=== PATIENT | male | born 1985 | race Caucasian/White ===

== ENCOUNTER 2020-05-08 21:53 | Emergency (ER) | payer OTHER, SELFPAY ==
[2020-05-08 21:56] VITALS: BP 145/85; PULSE 97; RESP 16; TEMP 36.6; O2SAT 97; BMI 22.9
[2020-05-08 22:12] LABS: Basophils # 0.1 K/mm3 (0-0.2); Basophils % 0.7 % (0.1-2.0); Eosinophils # 0.5 K/mm3 (0.0-0.4); Eosinophils % 2.4 % (0.1-12.0); Hematocrit 48.4 % (42.0-52.0); Hemoglobin 16.1 g/dL (14.1-18.0); Lymphocytes # 10.6 K/mm3 (0.7-4.5); Lymphocytes % 56.3 % (10-50); Mean Corpuscular HGB Conc 33.2 g/dL (31.8-35.4); Mean Corpuscular Hemoglobin 33.2 pg (27.0-31.2); Mean Platelet Volume 7.2 fl (7.4-10.4); Monocytes # 1.4 K/mm3 (0.1-1.0); Monocytes % 7.5 % (1.7-9.3); Neutrophils # 6.2 K/mm3 (1.8-7.8); Platelet Count 348 K/mm3 (142-424); Red Blood Count 4.84 M/mm3 (4.60-6.20); Red Cell Distribution Width 14.1 % (11.5-17.5); White Blood Count 18.9 K/mm3 (4.8-10.8)
[2020-05-08 22:14] LABS: MANUAL DIFFERENTIAL MANUAL DIFFERENTIAL (MANUAL DIFF)
[2020-05-08 22:15] LABS: Chloride 104 mmol/L (98-107)
[2020-05-08 22:16] LABS: Potassium 3.3 mmoL/L (3.5-5.1); Sodium 143 mmol/L (136-145)
[2020-05-08 22:18] LABS: Alanine Aminotransferase 83 U/L (12-78); Albumin Level 4.7 g/dl (3.5-5.0); Albumin/Globulin Ratio 1.3 (1.1-1.8); Alkaline Phosphatase 57 U/L (38-126); Anion Gap 16.3 mEq/L (5-15); Aspartate Amino Transferase 66 U/L (17-59); Bilirubin,Total 0.4 mg/dl (0.2-1.3); Blood Urea Nitrogen 14 mg/dl (9-20); Calcium 9.5 mg/dl (8.4-10.2); Carbon Dioxide 26 mmol/L (22.0-30.0); Creatinine Clearance Estimated 115 mL/min (50-200); Estimated Glomerular Filt Rate 95 ml/min (>60); GFR (African American) 115 ML/MIN (>60); Globulin 3.5 g/dL (1.3-3.2); Glucose 161 mg/dl (74-100); Total Protein,Serum 8.2 g/dl (6.3-8.2)
[2020-05-08 22:23] LABS: Eosinophils % 10 % (0-3); Lymphocytes % 65 % (10-50); Monocytes % 3 % (2-9); Neutrophils % 22 % (42-76); Total Cells Counted 100
[2020-05-08 22:24] LABS: Anisocytosis 1+; Platelet Estimate Normal; RBC Morphology Normal
[2020-05-08 22:30] VITALS: BP 154/97; PULSE 72; RESP 18; O2SAT 96
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
[2020-05-08 23:55] VITALS: BP 148/78; PULSE 76; RESP 16; TEMP 526.1; TEMP 979; O2SAT 98
== END 2020-05-08 23:57 ==
PROVIDERS: Emergency Provider Emergency Medicine; PCP Emergency Medicine
DX: F10.129 Alcohol abuse with intoxication, unspecified (principal); T50.901A Poisoning by unspecified drugs, medicaments and biological substances, accidental (unintentional), initial encounter; F33.9 Major depressive disorder, recurrent, unspecified; K21.9 Gastro-esophageal reflux disease without esophagitis; F90.9 Attention-deficit hyperactivity disorder, unspecified type; F17.210 Nicotine dependence, cigarettes, uncomplicated; Z79.899 Other long term (current) drug therapy
CPT/HCPCS: 36415; 80053; 85007; 85025; 99283

== ENCOUNTER 2020-12-05 18:17 | Emergency (ER) | payer OTHER, SELFPAY ==
[2020-12-05 18:18] VITALS: BP 137/93; PULSE 55; RESP 22; TEMP 37.1; O2SAT 98; BMI 22.3
--- NOTE | 2020-12-05 18:20 | ECG_ITS ---
APPROVED REPORT Exam: Resting ECG HR:52 bpm ECG Measurements Heart Rate 52 AXES MN 132 P 50 QRSd 84 QRS 78 QT 466 T 63 QTc 433 Conclusion Sinus bradycardia Septal infarct, age undetermined Abnormal ECG Electronically signed by : Barber Gray, 12/06/2020 15:08:02
[2020-12-05 18:26] VITALS: BMI 25.0
--- NOTE | 2020-12-05 18:27 | XR_ITS ---
PROCEDURE: XR CHEST PORTABLE CLINICAL HISTORY: cough COMPARISON: CR CXR CHEST(2 VIEWS-NOT PORTABLE) from 11/03/2013 FINDINGS: The cardiomediastinal silhouette and pulmonary vascularity are within normal limits. The lungs are clear without infiltrates, suspicious nodules, or pleural effusions. No acute bony abnormalities. IMPRESSION: No acute findings. Dictated by: Anjana Perla 12/06/2020 10:25 Anjana Perla in [facility] 12/06/2020 10:25
[2020-12-05 18:38] LABS: Basophils % 0.3 % (0.1-2.0); Eosinophils # 0.1 K/mm3 (0.0-0.4); Eosinophils % 0.7 % (0.1-12.0); Hematocrit 44.1 % (42.0-52.0); Hemoglobin 14.8 g/dL (14.1-18.0); Lymphocytes % 21.2 % (10-50); Mean Corpuscular HGB Conc 33.6 g/dL (31.8-35.4); Mean Corpuscular Hemoglobin 31.1 pg (27.0-31.2); Mean Corpuscular Volume 92.5 fl (80-94); Monocytes # 0.6 K/mm3 (0.1-1.0); Monocytes % 6.6 % (1.7-9.3); Neutrophils # 6.8 K/mm3 (1.8-7.8); Neutrophils % 71.2 % (37.0-80.0); Platelet Count 292 K/mm3 (142-424); Red Blood Count 4.77 M/mm3 (4.60-6.20); Red Cell Distribution Width 13.5 % (11.5-17.5); White Blood Count 9.5 K/mm3 (4.8-10.8)
[2020-12-05 18:46] LABS: Chloride 105 mmol/L (98-107); Potassium 3.4 mmoL/L (3.5-5.1); Sodium 139 mmol/L (136-145)
[2020-12-05 18:48] LABS: Blood Urea Nitrogen 12 mg/dl (9-20); Creatinine Clearance Estimated 130 mL/min (50-200); Estimated Glomerular Filt Rate 109 ml/min (>60); GFR (African American) 132 ML/MIN (>60)
[2020-12-05 18:49] LABS: Alanine Aminotransferase 126 U/L (12-78); Albumin/Globulin Ratio 1.6 (1.1-1.8); Alkaline Phosphatase 90 U/L (38-126); Anion Gap 12.4 mEq/L (5-15); Aspartate Amino Transferase 77 U/L (17-59); Bilirubin,Total 0.7 mg/dl (0.2-1.3); Carbon Dioxide 25 mmol/L (22.0-30.0); Globulin 3.2 g/dL (1.3-3.2); Glucose 120 mg/dl (74-100); Lipase 120 U/L (23-300); Total Protein,Serum 8.2 g/dl (6.3-8.2)
--- NOTE | 2020-12-05 18:51 | HMH.EDGENADL ---
ED Disposition Clinical Impression: Dyspepsia Disposition: Still a Patient Condition on Discharge: Fair Referrals: Jarett Frankel MD [Primary Care Provider] - - Critical Care Critical Care Time: No Attestation: On 12/05/20, the high probability of a clinically significant, sudden or life threatening deterioration of the following system(s) required my full and direct attention, intervention and personal management. The time I documented below is in addition to time spent performing reported procedures but includes the following listed in this critical care notation. Medical Decision Making - Medical Records Medical records reviewed: Yes: I reviewed the patient's medical records. - Armin Inquiry Pt receiving controlled substance: No Vital Signs: 12/05/20 18:18 Temperature 98.7 F Temperature Source Oral Pulse Rate [Radial] 55 L Respiratory Rate 22 Blood Pressure [Right Arm] 137/93 H Blood Pressure Mean [Right Arm] 107 Blood Pressure Position [Right Arm] Sitting 02 Sat by Pulse Oximetry 98 Oxygen Delivery Method Room Air - Lab Data Lab Results 12/05/20 18:27: WBC 9.5, RBC 4.77, Hgb 14.8, Hct 44.1, MCV 92.5, MCH 31.1, MCHC 33.6, RDW 13.5, Plt Count 292, MPV 7.0 L, Neut % (Auto) 71.2, Lymph % (Auto) 21.2, [place] % (Auto) 6.6, Eos % (Auto) 0.7, Baso % (Auto) 0.3, Neut # (Auto) 6.8, Lymph # (Auto) 2.0, [place] # (Auto) 0.6, Eos # (Auto) 0.1, Baso # (Auto) 0.0 12/05/20 18:27: Sodium 139, Potassium 3.4 L, Chloride 105, Carbon Dioxide 25, Anion Gap 12.4, BUN 12, Creatinine 0.80, Estimated Creat Clear 130, Estimated GFR 109, Est GFR ( Amer) 132, Glucose 120 H, Calcium 10.0, Total Bilirubin 0.7, AST 77 H, ALT 126 H, Alkaline Phosphatase 90, Troponin I < 0.01, Total Protein 8.2, Albumin 5.0, Globulin 3.2, Albumin/Globulin Ratio 1.6, Lipase 120 Result diagrams: 12/05/20 18:27 12/05/20 18:27 Orders (Tests/Meds): ED MEDICATIONS Discontinued Medications Generic Name Dose Route Start Last Admin Trade Name Freq PRN Reason Stop Dose Admin Belladonna Alkaloids 60 ml 12/05/20 18:28 12/05/20 18:29 Gi Cocktail 60ml Udc PO 12/05/20 18:29 60 ml ONCE ONE Administration Famotidine 20 mg 12/05/20 18:26 12/05/20 18:32 Famotidine 20mg/2ml Vial IV 12/05/20 18:27 20 mg ONCE ONE Administration Haloperidol Lactate 3 mg 12/05/20 19:31 Haloperidol Lactate 5 Mg/Ml Vial IV 12/05/20 19:32 ONCE ONE Sodium Chloride 1,000 mls @ 999 mls/hr 12/05/20 18:30 12/05/20 18:32 Sod Chlor 0.9% 1000ml Bag IV 12/05/20 19:30 999 mls/hr .Q1H1M ALECIA Administration Ondansetron HCl 4 mg 12/05/20 19:11 12/05/20 19:14 Ondansetron 4mg/2ml Vial IV 12/05/20 19:12 4 mg ONCE ONE Administration Promethazine HCl 25 mg 12/05/20 18:26 12/05/20 18:32 Promethazine Hcl 25mg/Ml 1ml Vial IV 12/05/20 18:27 25 mg ONCE ONE Administration Sodium Chloride 8 ml 12/05/20 18:26 12/05/20 18:32 Sodium Chloride 0.9% 10ml Vial IV 01/04/21 18:25 8 ml NEEDED PRN Administration dilute pepcid Sodium Chloride 25 ml 12/05/20 18:26 12/05/20 18:32 Sodium Chloride 0.9% 25ml Bag IV 12/05/20 18:27 25 ml ONCE ONE Administration ORDERS Category Date Time Status CT abdomen pelvis wo con Stat Cat Scan 12/05/20 19:32 Ordered XR chest portable Stat Exams 12/05/20 18:27 Taken Troponin I Q3H Lab 12/05/20 21:30 Ordered Troponin I Q3H Lab 12/06/20 00:30 Ordered - ECG Data Tracing #1 Bradycardic rate of 52 bpm, normal AR interval, normal QTC, sinus bradycardia with nonspecific changes ECG initial impression date: 12/05/20 ECG initial impression time: 18:22 - Reevaluation(s) Time: 19:34 Reevaluation #1: On reevaluation, patient continues to have nausea and vomiting as well as epigastric pain. CT will be obtained. Patient provided additional antiemetics. Signed out to oncoming physician pending work-up and evaluation. Medical Decision Narrative: 35-year-
[2020-12-05 19:03] LABS: Troponin I < 0.01 ng/ml (0.00-0.034)
--- NOTE | 2020-12-05 19:32 | CT_ITS ---
PROCEDURE: CT ABDOMEN PELVIS WO CON CLINICAL INDICATION: abd pain COMPARISON: No exams were available for comparison TECHNIQUE: Axial images obtained with sagittal and coronal reformats. All CT scans at the facility use one or more dose reduction, viz: automated exposure control, ma/kV adjustment per patient size (including targeted exams where dose is matched to indication, i.e. head), or iterative reconstruction technique. FINDINGS: LOWER THORAX: No acute finding ABDOMEN & PELVIS: The liver, spleen, adrenal glands, and pancreas are unremarkable within the limitations of unenhanced study. The gallbladder is unremarkable. No intra or extrahepatic biliary dilation. Bilateral nonobstructive calculi are noted measuring up to 2 millimeters. No evidence of hydronephrosis or hydroureter. The large and small bowel loops demonstrate no focal wall thickening, obstruction or adjacent inflammatory changes. The appendix is normal. No significant retroperitoneal or mesenteric lymphadenopathy. No free fluid or free intraperitoneal air. The visualized abdominal aorta and its branches are unremarkable. Multilevel minor degenerative changes of the lumbar spine noted. IMPRESSION: Bilateral minor nonobstructive punctate renal calculi measuring up to 2 millimeters. No evidence of hydronephrosis. No other acute intra-abdominal abnormality. Dictated by: Anjana Perla 12/06/2020 10:17 Anjana Perla in [facility] 12/06/2020 10:17
[2020-12-05 19:52] VITALS: BP 000/00; PULSE 0; RESP 0; TEMP -17.7; TEMP 0; O2SAT 0
[2020-12-05 19:57] LABS: Amylase 119 U/L (30-110); Lipase 120 U/L (23-300)
--- NOTE | 2020-12-05 19:57 | PC.NURSE ---
Pt attempted to walk out, I had to delon pt and convince him to return to ER so I could DC his IV. Pt states he wants to leave and refuses to allow me to get VS and refuses to sign AMA. It was explained to the pt we would like for him to wait until his tests come back, but he refused.
[2020-12-05 20:10] LABS: Erythrocyte Sedimentation Rate 22 mm/hr (0-15)
[2020-12-05 20:15] LABS: Procalcitonin 0.064 ng/mL (0.0-2.0)
== END 2020-12-05 20:02 | disposition still patient (30) ==
PROVIDERS: Emergency Provider Emergency Medicine; PCP Emergency Medicine
DX: R10.13 Epigastric pain (principal); K21.9 Gastro-esophageal reflux disease without esophagitis; F17.210 Nicotine dependence, cigarettes, uncomplicated; F32.9 Major depressive disorder, single episode, unspecified; F90.9 Attention-deficit hyperactivity disorder, unspecified type
CPT/HCPCS: 71045; 74176; 80053; 82150; 83690; 84145; 84484; 85025; 85651; 93005; 96365; 96375; 99282; J2405

== ENCOUNTER 2021-01-25 02:13 | Emergency (ER) | payer OTHER, SELFPAY ==
[2021-01-25] VITALS (7 sets, daily range): BP systolic 116–152; BP diastolic 67–99; PULSE 69–95; RESP 12–24; TEMP 36.2–36.6; O2SAT 95–100; BMI 23.3
--- NOTE | 2021-01-25 01:57 | ECG_ITS ---
APPROVED REPORT Exam: Resting ECG HR:96 bpm ECG Measurements Heart Rate 96 AXES OH 138 P 67 QRSd 76 QRS 88 QT 330 T 66 QTc 416 Conclusion Normal sinus rhythm Nonspecific ST abnormality Abnormal ECG Electronically signed by : Barber Gray, 01/26/2021 07:10:13
--- NOTE | 2021-01-25 02:07 | XR_ITS ---
PROCEDURE INFORMATION: Exam: XR Chest Exam date and time: 01/25/2021 2:07 AM Age: 35 years old Clinical indication: Patient HX: Overdose, smoker TECHNIQUE: Imaging protocol: XR of the chest. Views: 1 view. COMPARISON: CR XR CHEST PORTABLE 12/05/2020 6:32 PM FINDINGS: Lungs: Unremarkable. No consolidation. Pleural spaces: Unremarkable. No pleural effusion. No pneumothorax. Heart/Mediastinum: Unremarkable. No cardiomegaly. Bones/joints: Unremarkable. IMPRESSION: No acute findings.
--- NOTE | 2021-01-25 02:07 | HMH.EDOD ---
ED Disposition Clinical Impression: Heroin overdose Qualifiers: Encounter type: initial encounter Injury intent: accidental or unintentional Qualified Code(s): T40.1X1A - Poisoning by heroin, accidental (unintentional), initial encounter Disposition: Home, Self-Care Condition on Discharge: Good Additional Instructions: Return to the ED for any new or worsening symptoms. Prescriptions: Naloxone HCl [Narcan] 4 mg NS ONCE PRN #1 spray PRN Reason: overdose Prescription Printed Referrals: Jarett Frankel MD [Primary Care Provider] - Time of Disposition: 04:45 - Critical Care Critical Care Time: No Attestation: On , the high probability of a clinically significant, sudden or life threatening deterioration of the following system(s) required my full and direct attention, intervention and personal management. The time I documented below is in addition to time spent performing reported procedures but includes the following listed in this critical care notation. Medical Decision Making - Medical Records Medical records reviewed: Yes: I reviewed the patient's medical records. - Armin Inquiry Pt receiving controlled substance: No Vital Signs: 01/25/21 02:05 01/25/21 02:30 01/25/21 03:00 Temperature 97.1 F L Temperature Source Oral Pulse Rate 71 85 Pulse Rate [Right Brachial] 95 H Respiratory Rate 24 Blood Pressure 133/78 145/85 H Blood Pressure [Right Arm] 152/99 H Blood Pressure Mean Blood Pressure Mean [Right Arm] 116 Blood Pressure Source [Right Arm] Automatic Cuff Blood Pressure Position [Right Arm] Sitting 02 Sat by Pulse Oximetry 100 96 97 Oxygen Delivery Method Room Air 01/25/21 03:30 Temperature Temperature Source Pulse Rate 69 Pulse Rate [Right Brachial] Respiratory Rate 12 Blood Pressure 116/67 Blood Pressure [Right Arm] Blood Pressure Mean 83 Blood Pressure Mean [Right Arm] Blood Pressure Source [Right Arm] Blood Pressure Position [Right Arm] 02 Sat by Pulse Oximetry 95 Oxygen Delivery Method - Lab Data Lab Results 01/25/21 02:12: WBC 16.8 H, RBC 4.47 L, Hgb 14.0 L, Hct 41.7 L, MCV 93.4, MCH 31.4 H, MCHC 33.7, RDW 13.6, Plt Count 311, MPV 7.0 L, Neut % (Auto) 67.1, Lymph % (Auto) 24.9, [place] % (Auto) 5.6, Eos % (Auto) 2.0, Baso % (Auto) 0.5, Neut # (Auto) 11.3 H, Lymph # (Auto) 4.2, [place] # (Auto) 0.9, Eos # (Auto) 0.3, Baso # (Auto) 0.1, Total Counted 100, Neutrophils % (Manual) 51, Lymphocytes % (Manual) 36, Monocytes % (Manual) 11 H, Eosinophils % (Manual) 2, Platelet Estimate Normal, RBC Morphology Normal 01/25/21 02:12: Sodium 138, Potassium 4.1, Chloride 102, Carbon Dioxide 27, Anion Gap 13.1, BUN 21 H, Creatinine 1.00, Estimated Creat Clear 94, Estimated GFR 84, Est GFR ( Amer) 102, Glucose 162 H, Calcium 8.8, Total Bilirubin 0.4, AST 57, ALT 95 H, Alkaline Phosphatase 85, Total Protein 7.4, Albumin 4.6, Globulin 2.8, Albumin/Globulin Ratio 1.6 Result diagrams: 01/25/21 02:12 01/25/21 02:12 Orders (Tests/Meds): ED MEDICATIONS Generic Name Dose Route Start Last Admin Trade Name Freq PRN Reason Stop Dose Admin Sodium Chloride 1,000 mls @ 999 mls/hr 01/25/21 02:15 01/25/21 02:21 Sod Chlor 0.9% 1000ml Bag IV 01/25/21 03:15 999 mls/hr .Q1H1M ALECIA Administration Discontinued Medications Generic Name Dose Route Start Last Admin Trade Name Freq PRN Reason Stop Dose Admin Ondansetron HCl 4 mg 01/25/21 02:07 01/25/21 02:21 Ondansetron 4mg/2ml Vial IV 01/25/21 02:08 4 mg ONCE ONE Administration - Radiology Data #1 Image(s): Chest Image Reviewed: Yes I reviewed the patient's radiology image Preliminary Findings: Normal/NAD No significant abnormalities. Medical Decision Narrative: Patient presented after an opiate overdose reporting that he snorted heroin. 2 mg of Narcan he is now awake alert and oriented somewhat agitated but compliant. Basic laboratory data was obtained as well as a chest x-ray.
[2021-01-25 02:18] LABS: Basophils # 0.1 K/mm3 (0-0.2); Basophils % 0.5 % (0.1-2.0); Eosinophils # 0.3 K/mm3 (0.0-0.4); Hematocrit 41.7 % (42.0-52.0); Lymphocytes # 4.2 K/mm3 (0.7-4.5); Lymphocytes % 24.9 % (10-50); Mean Corpuscular HGB Conc 33.7 g/dL (31.8-35.4); Mean Corpuscular Hemoglobin 31.4 pg (27.0-31.2); Mean Corpuscular Volume 93.4 fl (80-94); Monocytes # 0.9 K/mm3 (0.1-1.0); Monocytes % 5.6 % (1.7-9.3); Neutrophils # 11.3 K/mm3 (1.8-7.8); Neutrophils % 67.1 % (37.0-80.0); Platelet Count 311 K/mm3 (142-424); Red Blood Count 4.47 M/mm3 (4.60-6.20); Red Cell Distribution Width 13.6 % (11.5-17.5); White Blood Count 16.8 K/mm3 (4.8-10.8)
[2021-01-25 02:22] LABS: MANUAL DIFFERENTIAL MANUAL DIFFERENTIAL (MANUAL DIFF)
[2021-01-25 02:23] LABS: Chloride 102 mmol/L (98-107); Sodium 138 mmol/L (136-145)
[2021-01-25 02:24] LABS: Potassium 4.1 mmoL/L (3.5-5.1)
[2021-01-25 02:26] LABS: Alanine Aminotransferase 95 U/L (12-78); Albumin Level 4.6 g/dl (3.5-5.0); Albumin/Globulin Ratio 1.6 (1.1-1.8); Alkaline Phosphatase 85 U/L (38-126); Anion Gap 13.1 mEq/L (5-15); Aspartate Amino Transferase 57 U/L (17-59); Bilirubin,Total 0.4 mg/dl (0.2-1.3); Blood Urea Nitrogen 21 mg/dl (9-20); Carbon Dioxide 27 mmol/L (22.0-30.0); Creatinine Clearance Estimated 94 mL/min (50-200); Estimated Glomerular Filt Rate 84 ml/min (>60); GFR (African American) 102 ML/MIN (>60); Globulin 2.8 g/dL (1.3-3.2); Total Protein,Serum 7.4 g/dl (6.3-8.2)
[2021-01-25 02:27] LABS: Calcium 8.8 mg/dl (8.4-10.2); Glucose 162 mg/dl (74-100)
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
--- NOTE | 2021-01-25 02:56 | PC.NURSE ---
pd arrived to ed. escorted out of unit. in talking with patient at this time.
[2021-01-25 02:57] LABS: Eosinophils % 2 % (0-3); Lymphocytes % 36 % (10-50); Monocytes % 11 % (2-9); Neutrophils % 51 % (42-76); Platelet Estimate Normal; RBC Morphology Normal; Total Cells Counted 100
== END 2021-01-25 04:57 | disposition home or self-care (01) ==
PROVIDERS: Emergency Provider Student in an Organized Health Care Education/Training Program; PCP Emergency Medicine
DX: T40.1X1A Poisoning by heroin, accidental (unintentional), initial encounter (principal); F33.1 Major depressive disorder, recurrent, moderate; K21.9 Gastro-esophageal reflux disease without esophagitis; F90.9 Attention-deficit hyperactivity disorder, unspecified type; F17.210 Nicotine dependence, cigarettes, uncomplicated
CPT/HCPCS: 71045; 80053; 85007; 85025; 93005; 96365; 96375; 99282; J2405

== ENCOUNTER 2021-04-01 19:17 | Emergency (ER) | payer OTHER, SELFPAY ==
[2021-04-01 19:17] VITALS: BP 132/92; PULSE 64; RESP 18; TEMP 36.8; O2SAT 99; BMI 22.2
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
--- NOTE | 2021-04-01 20:30 | PC.NURSE ---
Dr. Kat s/w Dr. Curran at [facility]
--- NOTE | 2021-04-01 20:35 | PC.NURSE ---
DORIS Barrow on phone with Dr. Levy re: transfer to ER, patient will travel per POV
[2021-04-01 20:37] VITALS: BP 136/88; PULSE 64; RESP 18; TEMP 36.8; O2SAT 99
[2021-04-01 20:40] VITALS: BP 143/92; PULSE 62; RESP 18; TEMP 37.1; O2SAT 97
[2021-04-01 21:03] VITALS: BP 134/75; PULSE 64; RESP 18; TEMP 37.1; O2SAT 97
== END 2021-04-01 21:04 | disposition short-term general hospital (02) ==
PROVIDERS: Emergency Provider Emergency Medicine; PCP Emergency Medicine
DX: S61.412A Laceration without foreign body of left hand, initial encounter (principal); W26.0XXA Contact with knife, initial encounter; Y92.019 Unspecified place in single-family (private) house as the place of occurrence of the external cause; K21.9 Gastro-esophageal reflux disease without esophagitis; Z23 Encounter for immunization; F33.1 Major depressive disorder, recurrent, moderate; F17.210 Nicotine dependence, cigarettes, uncomplicated
CPT/HCPCS: 73130; 90714; 99283

== ENCOUNTER 2022-10-27 09:39 | Emergency (ER) | payer OTHER, SELFPAY ==
--- NOTE | 2022-10-27 09:36 | ECG_ITS ---
APPROVED REPORT Exam: Resting ECG HR:96 bpm ECG Measurements Heart Rate 96 AXES OH 144 P 64 QRSd 85 QRS 68 QT 328 T 64 QTc 381 Conclusion SINUS RHYTHM SEPTAL MYOCARDIAL INFARCTION , OF INDETERMINATE AGE [40+ ms Q WAVE IN V1/V2] ABNORMAL ECG UNCONFIRMED REPORT Electronically signed by : Barber Gray MD 10/27/2022 20:02:32
[2022-10-27 09:39] VITALS: BP 155/117; PULSE 99; RESP 17; TEMP 36.7; O2SAT 98; BMI 22.9
[2022-10-27 09:40] VITALS: BMI 22.9
--- NOTE | 2022-10-27 09:41 | XR_ITS ---
FINAL REPORT CLINICAL HISTORY: CHEST PAIN+ smoker COMPARISON: 01/25/2021 FINDINGS: Two views of the chest were obtained. The heart size and pulmonary vascularity are within normal limits. The mediastinum is normal. No acute pulmonary abnormality is identified. There is no pneumothorax. The bony thorax is intact. IMPRESSION: No active cardiopulmonary disease. Reviewed, Interpreted and Dictated by Santos Sheehan III, MD Transcribed by Beba Clark Authenticated and [facility]
--- NOTE | 2022-10-27 09:57 | PC.NURSE ---
PT TO XR
--- NOTE | 2022-10-27 09:57 | PC.NURSE ---
DR VASQUEZ AT BEDSIDE
[2022-10-27 09:59] LABS: Basophils # 0.2 K/mm3 (0-0.2); Basophils % 2.3 % (0.1-2.0); Eosinophils # 0.2 K/mm3 (0.0-0.4); Eosinophils % 2.3 % (0.1-12.0); Hematocrit 55.8 % (42.0-52.0); Lymphocytes # 3.3 K/mm3 (0.7-4.5); Lymphocytes % 45.9 % (10-50); Mean Corpuscular HGB Conc 33.6 g/dL (31.8-35.4); Mean Corpuscular Hemoglobin 33.6 pg (27.0-31.2); Mean Platelet Volume 7.4 fl (7.4-10.4); Monocytes # 0.6 K/mm3 (0.1-1.0); Monocytes % 8.4 % (1.7-9.3); Neutrophils % 41.1 % (37.0-80.0); Platelet Count 261 K/mm3 (142-424); Red Blood Count 5.58 M/mm3 (4.60-6.20); Red Cell Distribution Width 14.7 % (11.5-17.5); White Blood Count 7.3 K/mm3 (4.8-10.8)
[2022-10-27 10:00] VITALS: BP 146/120; PULSE 103; RESP 16; O2SAT 98
[2022-10-27 10:00] LABS: Chloride 106 mmol/L (98-107); Sodium 144 mmol/L (136-145)
[2022-10-27 10:01] LABS: Potassium 4.5 mmoL/L (3.5-5.1)
[2022-10-27 10:03] LABS: Blood Urea Nitrogen 10 mg/dl (9-20); Creatinine Clearance Estimated 102 mL/min (50-200); Estimated Glomerular Filt Rate 83 ml/min (>60); GFR (African American) 101 ML/MIN (>60)
[2022-10-27 10:04] LABS: Anion Gap 12.5 mEq/L (5-15); Calcium 8.6 mg/dl (8.4-10.2); Carbon Dioxide 30 mmol/L (22.0-30.0); Glucose 127 mg/dl (74-100)
[2022-10-27 10:06] LABS: Hemoglobin 18.8 g/dL (14.1-18.0)
--- NOTE | 2022-10-27 10:10 | PC.NURSE ---
PT RETURNED FROM XR
[2022-10-27 10:18] LABS: Troponin I < 0.01 ng/ml (0.00-0.034)
--- NOTE | 2022-10-27 10:26 | HMH.EDGENADL ---
Discharge Plan Disposition Patient Disposition: Home, Self-Care Condition: Good Chief Complaint: Chest Pain Prescriptions Prescriptions: No Action naloxone 4 MG spray,non-aerosol 4 mg NS ONCE PRN (Reason: overdose) Qty: 1 0RF Referrals Follow up/Referrals: Provider,Referral, MD [Primary Care Provider] - See instructions Activity Restrictions/Add. Instructions Additional Instructions/Restrictions: Follow-up with your primary care provider regarding this visit to the emergency department and further referral to cardiology as needed for further stress testing if needed. If you have any other concerning signs or symptoms, return to your primary care provider or the emergency department for further evaluation. Clinical Impressions Clinical Impression: Arm numbness left Discharge ED Provider: Ayan Knapp General Adult HPI General Chief complaint: Chest Pain Stated complaint: CHEST PAIN Time Seen by Provider: 10/27/22 09:45 Mode of Arrival: Ambulatory Limitations: No Limitations Description of Symptoms (Recalled from ER Triage Doc. by RN): PT REPORTS INTERMITTENT CHEST PAIN FOR 2 MONTHS OCCURS AT REST, REPORTS FEELS LIKE PRESSURE WITH WITH THE BEATING OF HIS HEART. REPORTS LEFT SIDED NUMBNESS AND OCCASIONAL RIGHT SIDED NUMBESSS THAT LASTS FOR 12-15 HOURS THEN RESOLVED. PT DENIES CHEST PAIN OR NUMBESS AT THIS TIME. History of Present Illness HPI narrative: This is a 37-year-old male with no significant medical history presenting with left upper extremity pain. Patient states that intermittently over the last 2 months, he has had left upper extremity numbness and tingling, intermittently, left lower extremity is numb and tingling. He has never had weakness in the extremity whether upper or lower. Last episode was 12 to 15 hours prior to arrival and only left upper extremity. Patient states that he intermittently has chest pain, but not necessarily associated with the upper extremity symptoms. Denies bowel or bladder dysfunction, loss of consciousness, seizure-like activity, trauma, shortness of breath, recent illness, or any other concerns at this time. Related Data Previous Rx's Medication Instructions Recorded naloxone 4 mg/actuation nasal spray 4 mg NS ONCE PRN overdose #1 spray 01/25/21 Allergies Allergy/AdvReac Type Severity Reaction Status Date / Time diphenhydramine Allergy Unknown Verified 12/05/20 18:28 [From BENADRYL] [facility] Disclaimer: The information contained in this section may have been updated after the patient was seen, as this information can be updated by other users. Social History Smoking Status: Current every day smoker tobacco type: cigarettes packs per day: 1 alcohol intake: never substance use type: opiates current occupational status: employed Travel in the last 8 weeks: None ROS Obtained: Yes All systems reviewed & no additional complaints except as documented Physical Exam General General appearance: alert and in no apparent distress Head Head exam: atraumatic, normocephalic and normal inspection Eye Eye exam: Present normal appearance, PERRL and EOMI ENT ENT exam: Present normal exam, normal oropharynx, mucous membranes moist, TM's normal bilaterally and normal external ear exam Neck Neck exam: Present normal inspection, full ROM and trachea midline; Absent meningismus or lymphadenopathy Chest Chest inspection: Present normal inspection and symmetric chest wall rise; Absent tenderness Respiratory Respiratory exam: Present normal lung sounds bilaterally; Absent respiratory distress Cardiovascular Cardiovascular exam: Present regular rate and normal rhythm; Absent JVD Abdominal Exam Abdominal exam: Present soft and normal bowel sounds; Absent distention, tenderness or guarding Extremities Exam Extremities exam: Present normal inspection, full ROM and normal capillary refill; Absent calf tenderness Back Exam Back exam: Present normal inspection; Ab
[2022-10-27 10:30] VITALS: BP 132/99; PULSE 71; O2SAT 99
[2022-10-27 11:00] VITALS: BP 128/88; PULSE 70; O2SAT 99
[2022-10-27 11:18] VITALS: BP 135/96; PULSE 74; RESP 16; O2SAT 99
[2022-10-27 11:23] VITALS: BP 135/96; PULSE 84; RESP 18; TEMP 36.8; O2SAT 96
== END 2022-10-27 11:25 | disposition home or self-care (01) ==
PROVIDERS: Emergency Provider Emergency Medicine
DX: R20.2 Paresthesia of skin (principal); R07.89 Other chest pain; F17.210 Nicotine dependence, cigarettes, uncomplicated
CPT/HCPCS: 71046; 80048; 84484; 85025; 93005; 99285

== ENCOUNTER 2023-05-12 09:53 | Emergency (ER) | payer MEDICAID, SELFPAY ==
[2023-05-12] VITALS (18 sets, daily range): BP systolic 130–176; BP diastolic 71–103; PULSE 53–85; RESP 12–20; TEMP 36.6–36.9; O2SAT 97–100; BMI 23.0
--- NOTE | 2023-05-12 10:00 | XR_ITS ---
FINAL REPORT CLINICAL HISTORY: nail gun injury to L hand COMPARISON: 04/01/2021 FINDINGS: LEFT HAND: 3 views of the left hand were obtained. There is no acute fracture or dislocation. There is a large metallic foreign body compatible with the patient's history of a nail gun injury in the anterolateral wrist and palm. The patient is post ORIF of a scaphoid fracture, with worsening fragmentation of the proximal pole since the prior hand film of 04/01/2021. There has been resorption in the proximal pole as well since that prior exam. IMPRESSION: Large nail in the anterolateral wrist and palm of the left hand. Post ORIF of his scaphoid fracture, with worsening fragmentation and increased resorption in the proximal pole since the prior exam. Reviewed, Interpreted and Dictated by Santos Sheehan III, MD Transcribed by Melissa Ramirez Authenticated and [facility]
--- NOTE | 2023-05-12 10:02 | HMH.EDGENADL ---
Discharge Plan Disposition Patient Disposition: Home, Self-Care Condition: Good Prescriptions Prescriptions: New cephalexin 500 mg capsule 500 mg PO TID 7 Days Qty: 21 0RF No Action naloxone 4 MG spray,non-aerosol 4 mg NS ONCE PRN (Reason: overdose) Qty: 1 0RF Referrals Follow up/Referrals: Drew Arcos DO [Staff Physician] - See instructions Jarett Frankel MD [Primary Care Provider] - See instructions Activity Restrictions/Add. Instructions Additional Instructions/Restrictions: You were evaluated in the emergency department today. 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 Take Tylenol and ibuprofen at home as needed for pain. Monitor for any signs of developing infection. Return to the emergency department for new or worsening symptoms, such as new numbness, tingling, significant increase in swelling, redness, warmth, or pus draining from the wound. Follow-up outpatient in orthopedic clinic with Dr. Arcos for wound check. You will need to call his office to schedule an appointment for next week. Clinical Impressions Clinical Impression: Injury of left hand by nail gun Qualifiers: Encounter type: initial encounter Qualified Code(s): S69.92XA - Unspecified injury of left wrist, hand and finger(s), initial encounter Acute foreign body of left hand Qualifiers: Encounter type: initial encounter Qualified Code(s): S60.552A - Superficial foreign body of left hand, initial encounter Fracture of scaphoid bone of left wrist Qualifiers: Encounter type: subsequent encounter Scaphoid bone location: unspecified portion of scaphoid Fracture type: closed Fracture alignment: nondisplaced Fracture healing: with malunion Qualified Code(s): S62.002P - Unspecified fracture of navicular [scaphoid] bone of left wrist, subsequent encounter for fracture with malunion Instructions Patient Instructions: DI for Removal of Foreign Body From Skin, DI for Moderate Sedation, DI for Hand Injury Discharge ED Provider: Rafaela Ramírez General Adult HPI General Chief complaint: Skin/Abscess/Foreign Body Stated complaint: AO9/6@home, nail lodged in Lt hand Time Seen by Provider: 05/12/23 09:56 History of Present Illness HPI narrative: This patient is a 38-year-old [id number] male with a history of substance abuse presenting to the emergency department for evaluation with concern for an nail embedded in the left hand. He was using a nail gun when it misfired into the ventral aspect of his hand at the base of his left thenar eminence. This happened just prior to arrival. No other injuries noted. He denies any numbness, tingling or other concerns, but does complain of moderate pain at the site of the foreign body. He was well prior to this. His last tetanus shot was approximately 7 years ago. Related Data Previous Rx's Medication Instructions Recorded naloxone 4 mg/actuation nasal spray 4 mg NS ONCE PRN overdose #1 spray 01/25/21 cephalexin 500 mg capsule 500 mg PO TID 7 days #21 caps 05/12/23 Allergies Allergy/AdvReac Type Severity Reaction Status Date / Time diphenhydramine Allergy Unknown Verified 12/05/20 18:28 [From BELEM] [facility] Disclaimer: The information contained in this section may have been updated after the patient was seen, as this information can be updated by other users. Social History Smoking Status: Current every day smoker tobacco type: cigarettes packs per day: 1 alcohol intake: never substance use type: opiates current occupational status: employed Travel in the last 8 weeks: None ROS Obtained: Yes All systems reviewed & no additional complaints except as documented Physical Exam General General appearance: alert and in no apparent distress Head Head exam: atraumatic and normocephalic Eye Eye exam: Present normal appearance, PERRL and EOM
--- NOTE | 2023-05-12 10:08 | PC.NURSE ---
PT TO XR
--- NOTE | 2023-05-12 10:12 | PC.NURSE ---
PT RETURNED FROM XR
--- NOTE | 2023-05-12 10:24 | PC.NURSE ---
Dr. Ramíerz speaking with Dr. Arcos, Orthopaedics
--- NOTE | 2023-05-12 10:26 | PC.NURSE ---
Dr. Ramírez at speaking with patient regarding POC
--- NOTE | 2023-05-12 11:57 | PC.NURSE ---
pt up to restroom. Pt states that he is back to his normal
== END 2023-05-12 12:39 | disposition home or self-care (01) ==
PROVIDERS: Emergency Provider Emergency Medicine; PCP Emergency Medicine
DX: W45.0XXA Nail entering through skin, initial encounter; F17.210 Nicotine dependence, cigarettes, uncomplicated; Z23 Encounter for immunization; S61.442A Puncture wound with foreign body of left hand, initial encounter
CPT/HCPCS: 73130; 90715; 96365; 96372; 99284; J0690

== ENCOUNTER 2023-08-22 13:35 | Emergency (ER) | payer MEDICAID, SELFPAY ==
[2023-08-22 13:36] VITALS: BP 165/96; PULSE 76; RESP 18; TEMP 36.7; O2SAT 18; BMI 22.3
--- NOTE | 2023-08-22 13:45 | PC.NURSE ---
DR HALL AT BEDSIDE
--- NOTE | 2023-08-22 13:48 | XR_ITS ---
PROCEDURE INFORMATION: Exam: XR Left Elbow Exam date and time: 08/22/2023 1:47 PM Age: 38 years old Clinical indication: Injury or trauma; Fall; Patient HX: Patient fell last week with laceration to left elbow. ; Additional info: Fall, old laceration, redness/warmth TECHNIQUE: Imaging protocol: Radiologic exam of the left elbow. Views: 3 or more views. COMPARISON: CR XR HAND LT MIN 3V 05/12/2023 9:59 AM FINDINGS: Bones/joints: No acute fractures, dislocations, or focal bone lesions. Volar cortical defect in the proximal 3rd of the ulna is believed to be an old healed fracture. No joint effusion. Soft tissues: Soft tissue swelling posterior to the elbow. At least 5 punctate radiodensities are superimposed upon the soft tissues posterior to the olecranon process. No soft tissue gas. IMPRESSION: 1. Olecranon bursitis. Several radiopaque foreign bodies are posterior to the olecranon that measure 1-3 mm. 2. No acute fractures, bone lesions, or joint effusion.
--- NOTE | 2023-08-22 13:58 | PC.NURSE ---
PT TO XR
--- NOTE | 2023-08-22 14:17 | HMH.EDGENADL ---
Discharge Plan Disposition Patient Disposition: Home, Self-Care Condition: Good Prescriptions Prescriptions: No Action naloxone 4 MG spray,non-aerosol 4 mg NS ONCE PRN (Reason: overdose) Qty: 1 0RF cephalexin 500 mg capsule 500 mg PO TID 7 Days Qty: 21 0RF Referrals Follow up/Referrals: Drew Arcos DO [Staff Physician] - See instructions Chase Kimball DO [Primary Care Provider] - See instructions Activity Restrictions/Add. Instructions Additional Instructions/Restrictions: You were evaluated in the emergency department today and given IV antibiotics here. Please follow-up closely with your primary care provider as well as with orthopedics for further evaluation and management. Ice and elevate to reduce pain and swelling. Take Tylenol and ibuprofen at home as needed for pain. Return to the emergency department for new or worsening symptoms. Clinical Impressions Clinical Impression: Bursitis, olecranon, Foreign body of elbow with infection Instructions Patient Instructions: DI for Skin Abscess, DI for Elbow Bursitis Discharge ED Provider: Rafaela Ramírez General Adult HPI General Chief complaint: Skin/Abscess/Foreign Body Stated complaint: AO [id number] left elbow swollen and red Time Seen by Provider: 08/22/23 13:42 Mode of Arrival: Ambulatory Limitations: No Limitations Description of Symptoms (Recalled from ER Triage Doc. by RN): PT REPORTS FALL 1 WEEK AGO, LANDED ON LEFT ELBOW, STRUCK A ROCK, POSSIBLE GLASS. REPORTS PAIN, SWELLING AND REDNESS. History of Present Illness HPI narrative: This patient is a 38-year-old male with a prior history of substance abuse presenting to the emergency department for evaluation with concern for left elbow pain and swelling. Patient reports that he had a fall approximately 1 week ago and landed on his left elbow. He states that he landed on a rock, which had glass on it. He states he was doing okay despite having wound on his elbow until this morning. This morning, it swelled up and has become red, warm, and painful. He denies any fevers or other systemic symptoms. No other concerns noted at this time. He still has intact range of motion of the elbow and has no numbness, tingling, or other issues. Related Data Previous Rx's Medication Instructions Recorded naloxone 4 mg/actuation nasal spray 4 mg NS ONCE PRN overdose #1 spray 01/25/21 cephalexin 500 mg capsule 500 mg PO TID 7 days #21 caps 05/12/23 Allergies Allergy/AdvReac Type Severity Reaction Status Date / Time diphenhydramine Allergy Unknown Verified 12/05/20 18:28 [From BENADRYL] [facility] Disclaimer: The information contained in this section may have been updated after the patient was seen, as this information can be updated by other users. Social History Smoking Status: Current every day smoker tobacco type: cigarettes packs per day: 1 alcohol intake: never substance use type: opiates current occupational status: employed Travel in the last 8 weeks: None ROS Obtained: Yes All systems reviewed & no additional complaints except as documented Physical Exam General General appearance: alert and in no apparent distress Head Head exam: atraumatic and normocephalic Eye Eye exam: Present normal appearance, PERRL and EOMI ENT ENT exam: Present normal exam, normal oropharynx, mucous membranes moist and normal external ear exam Neck Neck exam: Present normal inspection, full ROM and trachea midline; Absent tenderness Chest Chest inspection: Present normal inspection and symmetric chest wall rise; Absent tenderness Respiratory Respiratory exam: Present normal lung sounds bilaterally; Absent respiratory distress, wheezes, stridor or accessory muscle use Cardiovascular Cardiovascular exam: Present regular rate and normal rhythm Abdominal Exam Abdominal exam: Present soft; Absent distention, tenderness or guarding Extremities Exam
[2023-08-22 15:06] VITALS: BP 121/75; PULSE 79; RESP 20; TEMP 36.7; O2SAT 97
== END 2023-08-22 15:10 | disposition home or self-care (01) ==
PROVIDERS: Emergency Provider Emergency Medicine; PCP Internal Medicine
DX: L02.414 Cutaneous abscess of left upper limb (principal); L03.114 Cellulitis of left upper limb; S51.022S Laceration with foreign body of left elbow, sequela; W19.XXXS Unspecified fall, sequela; F17.210 Nicotine dependence, cigarettes, uncomplicated
CPT/HCPCS: 73080; 96374; 99284; J0875

== ENCOUNTER 2023-08-23 19:22 | Emergency (ER) | payer MEDICAID, SELFPAY ==
[2023-08-23 19:24] VITALS: BP 158/106; PULSE 93; RESP 18; TEMP 36.9; O2SAT 97; BMI 22.9
--- NOTE | 2023-08-23 20:21 | XR_ITS ---
PROCEDURE INFORMATION: Exam: XR Left Forearm Exam date and time: 08/23/2023 8:38 PM Age: 38 years old Clinical indication: Injury or trauma; Other: Fb in arm; Additional info: Fb in arm (glass) TECHNIQUE: Imaging protocol: Radiologic exam of the left forearm. Views: 2 views. COMPARISON: CR XR HAND LT MIN 3V 05/12/2023 9:59 AM FINDINGS: Bones/joints: No evidence of acute fracture or malalignment. Soft tissues: Punctate radiopaque foci overlying the left groin compatible with subcutaneous foreign body debris. Soft tissue edema noted. IMPRESSION: 1. No evidence of acute osseous abnormality in the left forearm. 2. Punctate radiopaque foci overlying the left groin compatible with subcutaneous foreign body debris.
--- NOTE | 2023-08-23 20:21 | XR_ITS ---
PROCEDURE INFORMATION: Exam: XR Left Elbow Exam date and time: 08/23/2023 8:39 PM Age: 38 years old Clinical indication: Injury or trauma; Other: Fb in arm; Additional info: Fb in arm (glass) TECHNIQUE: Imaging protocol: Radiologic exam of the left elbow. Views: 3 or more views. COMPARISON: CR XR ELBOW LT MIN 3V 08/22/2023 1:47 PM FINDINGS: Bones/joints: No evidence of acute fracture or malalignment. No elbow joint effusion. Soft tissues: Punctate radiopaque foci overlying the left groin compatible with subcutaneous foreign body debris. Soft tissue edema noted. IMPRESSION: 1. No evidence of acute osseous abnormality in the left elbow. 2. Punctate radiopaque foci overlying the left groin compatible with subcutaneous foreign body debris.
[2023-08-23 20:40] LABS: Alanine Aminotransferase 53 U/L (12-78); Albumin Level 4.4 g/dl (3.5-5.0); Albumin/Globulin Ratio 1.2 (1.1-1.8); Alkaline Phosphatase 65 U/L (38-126); Anion Gap 13.9 mEq/L (5-15); Aspartate Amino Transferase 42 U/L (17-59); Bilirubin,Total 0.4 mg/dl (0.2-1.3); Blood Urea Nitrogen 9 mg/dl (9-20); Calcium 8.3 mg/dl (8.4-10.2); Carbon Dioxide 20 mmol/L (22.0-30.0); Chloride 107 mmol/L (98-107); Creatinine Clearance Estimated 112 mL/min (50-200); Estimated Glomerular Filt Rate 93 ml/min (>60); GFR (African American) 113 ML/MIN (>60); Globulin 3.8 g/dL (1.3-3.2); Glucose 95 mg/dl (74-100); Lactic Acid 1.4 mmol/L (0.7-2.1); Potassium 3.9 mmoL/L (3.5-5.1); Sodium 137 mmol/L (136-145); Total Protein,Serum 8.2 g/dl (6.3-8.2)
[2023-08-23 20:45] LABS: C-Reactive Protein 87.1 mg/L (0-4)
--- NOTE | 2023-08-23 20:51 | CT_ITS ---
PROCEDURE INFORMATION: Exam: CT Left Upper Extremity Without Contrast, Elbow Exam date and time: 08/23/2023 9:34 PM Age: 38 years old Clinical indication: Condition or disease; Cellulitis; Elbow; Left; Additional info: Fall, cellulitis. Concern for joint infection TECHNIQUE: Imaging protocol: Computed tomography of the left upper extremity without contrast. Exam focused on the elbow. Radiation optimization: All CT scans at this facility use at least one of these dose optimization techniques: automated exposure control; mA and/or kV adjustment per patient size (includes targeted exams where dose is matched to clinical indication); or iterative reconstruction. REPORTING DATA: Count of CT and Cardiac NM exams in prior 12 months: This patient has received 0 known CTs and 0 known cardiac nuclear medicine studies in the 12 months prior to the current study. COMPARISON: CR XR ELBOW LT MIN 3V 08/23/2023 8:39 PM FINDINGS: Bones/joints: No evidence of acute fracture or malalignment. No elbow joint effusion. Soft tissues: Focal fluid collection with peripheral hyperenhancement in the subcutaneous soft tissues overlying the olecranon measuring approximately 2.5 x 2.0 x 1.0 cm. Punctate hyperattenuating foci surround the subcutaneous fluid collection compatible with foreign body debris vs nonspecific soft tissue calcifications. IMPRESSION: 1. No evidence of acute osseous abnormality in the left elbow. 2. Subcutaneous collection surrounded by foreign body debris vs nonspecific soft tissue calcifications overlying the olecranon concerning for soft tissue abscess vs septic olecranon bursitis.
[2023-08-23 20:52] LABS: Basophils % 0.3 % (0.1-2.0); Eosinophils # 0.2 K/mm3 (0.0-0.4); Eosinophils % 1.1 % (0.1-12.0); Hemoglobin 16.5 g/dL (14.1-18.0); Lymphocytes # 3.2 K/mm3 (0.7-4.5); Lymphocytes % 23.4 % (10-50); Mean Corpuscular HGB Conc 35.1 g/dL (31.8-35.4); Mean Corpuscular Hemoglobin 34.7 pg (27.0-31.2); Mean Corpuscular Volume 98.9 fl (80-94); Mean Platelet Volume 6.6 fl (7.4-10.4); Neutrophils # 9.3 K/mm3 (1.8-7.8); Neutrophils % 68.2 % (37.0-80.0); Platelet Count 248 K/mm3 (142-424); Red Blood Count 4.75 M/mm3 (4.60-6.20); Red Cell Distribution Width 13.9 % (11.5-17.5); White Blood Count 13.6 K/mm3 (4.8-10.8)
--- NOTE | 2023-08-23 21:12 | HMH.EDGENADL ---
Discharge Plan Disposition Patient Disposition: Home, Self-Care Chief Complaint: Skin/Abscess/Foreign Body Prescriptions Prescriptions: No Action naloxone 4 MG spray,non-aerosol 4 mg NS ONCE PRN (Reason: overdose) Qty: 1 0RF cephalexin 500 mg capsule 500 mg PO TID 7 Days Qty: 21 0RF Referrals Follow up/Referrals: Chase Kimball DO [Primary Care Provider] - See instructions Clinical Impressions Clinical Impression: Septic arthritis of elbow, left Instructions Patient Instructions: DI for Skin Abscess Discharge ED Provider: Ayan Knapp General Adult HPI General Chief complaint: Skin/Abscess/Foreign Body Stated complaint: LT elbow pain Time Seen by Provider: 08/23/23 20:03 Mode of Arrival: Ambulatory Source of Information: Patient Limitations: No Limitations Description of Symptoms (Recalled from ER Triage Doc. by RN): Pt presents with left elbow pain from a fall / lac from glass [employer] 1 week ago. Pt states he was fine until yesterday and came to ER, seen by Rafaela. Rafaela US elbow and gave Dalvance. Pt cannot bend elbow today due to swelling and redness has spread up his entire arm to axillary region. History of Present Illness HPI narrative: 38-year-old male presenting with elbow pain. Patient about a week ago and elbowed his arm on a rock that was covered in glass. Was seen 1 day prior to arrival. Was given Dalvance at that time for cellulitis of the left upper extremity. Patient states that he is having worsening pain and swelling today. Was able to bend his elbow yesterday, unable to do so today secondary to severe, 10 out of 10 pain. No fevers or chills, but has red streaking up and down his arm proximally and distally. Swelling of the elbow also extensive. Has not taken any medications for the pain. Came back secondary to extreme pain. Related Data Previous Rx's Medication Instructions Recorded naloxone 4 mg/actuation nasal spray 4 mg NS ONCE PRN overdose #1 spray 01/25/21 cephalexin 500 mg capsule 500 mg PO TID 7 days #21 caps 05/12/23 Allergies Allergy/AdvReac Type Severity Reaction Status Date / Time diphenhydramine Allergy Unknown Verified 12/05/20 18:28 [From BENADRYL] [facility] Disclaimer: The information contained in this section may have been updated after the patient was seen, as this information can be updated by other users. Social History Smoking Status: Current every day smoker tobacco type: cigarettes packs per day: 1 alcohol intake: never substance use type: opiates current occupational status: employed Travel in the last 8 weeks: None ROS Obtained: Yes All systems reviewed & no additional complaints except as documented Physical Exam General General appearance: alert and in no apparent distress Head Head exam: atraumatic and normocephalic Eye Eye exam: Present normal appearance, PERRL and EOMI ENT ENT exam: Present mucous membranes moist Neck Neck exam: Present normal inspection, full ROM and trachea midline Respiratory Respiratory exam: Present normal lung sounds bilaterally; Absent respiratory distress, wheezes, stridor, accessory muscle use or prolonged expiratory phase Cardiovascular Cardiovascular exam: Present regular rate and normal rhythm Abdominal Exam Abdominal exam: Present soft; Absent distention, tenderness, guarding, rebound, rigidity or normal bowel sounds Extremities Exam Extremities exam: Present other (Left upper extremity with 1 cm laceration overlying olecranon. Diffuse erythema, edema, tenderness with obvious joint effusion. Erythema extending proximally up to the level of the axilla and distally to the level of the wrist. Circumferential. Compartments are soft. Range of motion limited sec); Absent edema Neurological Exam Neurological exam: Present alert, oriented X3, CN II-XII intact and normal gait; Absent motor sensory deficit Skin Skin exam: Present warm and d
[2023-08-23 21:23] LABS: Erythrocyte Sedimentation Rate 16 mm/hr (0-15)
--- NOTE | 2023-08-23 22:11 | PC.NURSE ---
contacted [facility] for transfer for septic L elbow joint. RAD called to [facility] to [facility]
[2023-08-23 22:32] VITALS: BP 137/94; PULSE 95; RESP 16; TEMP 36.9; O2SAT 98
== END 2023-08-23 22:45 | disposition home or self-care (01) ==
PROVIDERS: Emergency Provider Emergency Medicine; PCP Internal Medicine
DX: M00.822 Arthritis due to other bacteria, left elbow (principal); S51.012S Laceration without foreign body of left elbow, sequela; W25.XXXA Contact with sharp glass, initial encounter; F17.210 Nicotine dependence, cigarettes, uncomplicated
CPT/HCPCS: 73080; 73090; 73200; 80053; 83605; 85025; 85651; 86140; 87040; 96361; 96374; 99285

== ENCOUNTER 2024-08-12 10:47 | Emergency (ER) | payer MEDICAID, SELFPAY ==
[2024-08-12 11:45] VITALS: BP 119/76; PULSE 70; RESP 19; TEMP 36.7; O2SAT 99; BMI 21.7
--- NOTE | 2024-08-12 12:46 | ED_ITS ---
Discharge Plan Disposition Patient Disposition: Home, Self-Care Condition: Good Prescriptions Prescriptions: New methylprednisolone [Medrol (Edward)] 4 mg tablets,dose pack See Rx Instructions .ROUTE .COMPLEX 6 Days Qty: 21 0RF Rx Instructions: 4 mg orally ;Medrol dose taper edward doxycycline hyclate 100 mg tablet 100 mg PO BID 10 Days Qty: 20 0RF ibuprofen 800 mg tablet 800 mg PO TID PRN (Reason: pain) Qty: 30 0RF Referrals Follow up/Referrals: Jimbo Tapia APRN [Primary Care Provider] - See instructions Activity Restrictions/Add. Instructions Additional Instructions/Restrictions: Take medication as prescribed. Follow up with primary care provider next week. Clinical Impressions Clinical Impression: Cellulitis of left elbow Bursitis, olecranon Qualifiers: Laterality: left Qualified Code(s): M70.22 - Olecranon bursitis, left elbow Instructions Patient Instructions: DI for Elbow Bursitis, DI for Cellulitis -- Adult Print Language Print Language: Italian Discharge ED Provider: Arianna Nunez [facility] General Stated complaint: left elbow swollen and red Mode of Arrival: Ambulatory Source of Information: Patient Limitations: No Limitations Time Seen by Provider: 08/12/24 12:43 Description of Symptoms (Recalled from Triage Doc. by RN): PATIENT C/O REDNESS AND SWELLING TO LEFT ELBOW X 3 DAYS HEENT Symptoms (Recalled from RN notes): No Resp Symptoms (Recalled from RN notes): No Skin Symptoms (Recalled from RN notes): No MS Symptoms (Recalled from RN notes): Yes Functional Status (Recalled from RN notes): WNL History of Present Illness Provider Complaint: Pt reports that he injured his left elbow last year and had to have some glass removed at that time. He states that there continues to be some glass at the site. He states that he hit his elbow 3 days ago and it started swelling and being painful. He states that now he has redness running down to his forearm. Related Data Previous Rx's ?Medication ?Instructions ?Recorded doxycycline hyclate 100 mg tablet 100 mg PO BID 10 days #20 tabs 08/12/24 ibuprofen 800 mg tablet 800 mg PO TID PRN pain #30 tabs 08/12/24 methylprednisolone 4 mg tablets in See Rx Instructions .Route 08/12/24 a dose pack (Medrol (Edward)) .COMPLEX 6 days #21 tabs Allergies Allergy/AdvReac Type Severity Reaction Status Date / Time diphenhydramine (From Allergy Unknown Verified 12/05/20 18:28 BENADRYL) Worker's Comp Is this a Worker's Comp case?: No [facility] Disclaimer: The information contained in this section may have been updated after the patient was seen, as this information can be updated by other users. Medical History (Updated 08/12/24 @ 13:02 by Arianna Nunez APRN) Anxiety Hypertension Surgical History (Updated 08/12/24 @ 11:57 by Radha Stafford RN) History of tonsillectomy Social History Smoking Status: Current every day smoker tobacco type: cigarettes packs per day: 1 alcohol intake: never substance use type: opiates current occupational status: employed Travel in the last 8 weeks: None ROS Obtained: Yes All systems reviewed & no additional complaints except as documented Constitutional Constitutional: Reports system reviewed and no additional complaints, except as documented Eyes Eyes: Reports system reviewed and no additional complaints, except as documented ENT Ears, Nose, Mouth, and Throat: Reports system reviewed and no additional complaints, except as documented Cardiovascular Cardiovascular: Reports system reviewed and no additional complaints, except as documented Respiratory Respiratory: Reports system reviewed and no additional complaints, except as documented Gastrointestinal Gastrointestingal: Reports system reviewed and no additional complaints, except as documented Genitourinary Male Genitourinary: Reports system reviewed and no additional complaints, except as documented Musculoskeletal Musculoskeletal: Reports system reviewed and no additional complaints, except as documented, Reports arthralgias and Reports joint swelling Integumentary/Breasts Skin/Breast: Reports system reviewed and no additional complaints, except as documented and Reports redness Neurologic Neurologic: Reports system reviewed and no additional complaints, except as documented Endocrine Endocrine: Reports system reviewed and no additional complaints, except as documented Hematologic/Lymphatic Henatologic/Lymphatic: Reports system reviewed and no additional complaints, except as documented Allergic/Immunologic Allergic/Immunologic: Reports system reviewed and no additional complaints, except as documented Physical Exam General General appearance: alert and in no apparent distress Head Head exam: atraumatic and normocephalic Eye Eye exam: Present normal appearance ENT ENT exam: Present normal exam and normal oropharynx Neck Neck exam: Present normal inspection Chest Chest inspection: Present normal inspection and symmetric chest wall rise Respiratory Respiratory exam: Present normal lung sounds bilaterally Cardiovascular Cardiovascular exam: Present regular rate and normal rhythm Abdominal Exam Abdominal exam: Present soft Extremities Exam Extremities exam: Present tenderness, normal capillary refill, edema and joint swelling Expanded Upper Extremity Exam Left: Shoulder exam: Present normal inspection Arm exam: Present normal inspection Elbow exam: Present tenderness, swelling, erythema and effusion L/R Arms Top View: 2 1. area of redness and swelling Back Exam Back exam: Present normal inspection Neurological Exam Neurological exam: Present alert and oriented X3 Psychiatric Psychiatric exam: Present normal affect and normal mood Skin Skin exam: Present warm, dry and intact Lymphatic Lymphatic Findings: no adenopathy Medical Decision Making Medical Records Screening: Per USPSTF and CDC recommendations, given the prevalence of disease in our region, it is our hospital?s policy to screen for HIV and viral Hepatitis for all patients aged 18 and over and those with ongoing risk factors. Armin Inquiry Pt receiving controlled substance: No Armin was queried for this patient: No Vital Signs: 08/12/24 11:45 Temperature 98.1 F Temperature Source Oral Pulse Rate [Left Brachial] 70 Respiratory Rate 19 Blood Pressure [Left Arm] 119/76 Blood Pressure Mean [Left Arm] 90 Blood Pressure Source [Left Arm] Automatic Cuff Blood Pressure Position [Left Arm] Sitting 02 Sat by Pulse Oximetry 99 Oxygen Delivery Method Room Air
[2024-08-12 13:03] VITALS: BP 119/76; PULSE 70; RESP 19; TEMP 36.7; O2SAT 99
== END 2024-08-12 13:08 | disposition home or self-care (01) ==
PROVIDERS: Emergency Provider Nurse Practitioner Family; PCP Nurse Practitioner Family
DX: M70.22 Olecranon bursitis, left elbow (principal); L03.114 Cellulitis of left upper limb; M25.422 Effusion, left elbow
CPT/HCPCS: 99212; G0381

== ENCOUNTER 2024-10-19 15:33 | Emergency (ER) | payer MEDICAID, SELFPAY ==
[2024-10-19 16:07] VITALS: BP 168/98; PULSE 63; RESP 20; TEMP 36.8; O2SAT 98; BMI 22.9
--- NOTE | 2024-10-19 17:36 | PC.NURSE ---
ROUNDED ON THE PT. THE PT VOICES THAT HE DOES NOT NEED ANYTHING AT THIS TIME. CALL LIGHT IS WITHIN REACH OF THE PT.
--- NOTE | 2024-10-19 17:54 | ECG_ITS ---
APPROVED REPORT Exam: Resting ECG HR:61 bpm ECG Measurements Heart Rate 61 AXES VA 148 P 78 QRSd 95 QRS 81 QT 384 T 76 QTc 387 Conclusion SINUS RHYTHM POSSIBLE RIGHT VENTRICULAR CONDUCTION DELAY [RSR (QR) IN V1/V2] SEPTAL MYOCARDIAL INFARCTION , OF INDETERMINATE AGE [40+ ms Q WAVE IN V1/V2] ABNORMAL ECG No STEMI Electronically signed by : TAJ RUTLEDGE, 10/20/2024 06:03:59
--- NOTE | 2024-10-19 17:57 | HMH.EDGENADL ---
Discharge Plan Disposition Patient Disposition: Home, Self-Care Chief Complaint: Recheck/Abnormal Lab/Rx Prescriptions Prescriptions: No Action methylprednisolone [Medrol (Edward)] 4 mg tablets,dose pack See Rx Instructions .ROUTE .COMPLEX 6 Days Qty: 21 0RF Rx Instructions: 4 mg orally ;Medrol dose taper edward doxycycline hyclate 100 mg tablet 100 mg PO BID 10 Days Qty: 20 0RF ibuprofen 800 mg tablet 800 mg PO TID PRN (Reason: pain) Qty: 30 0RF Referrals Follow up/Referrals: Jimbo Tapia APRN [Primary Care Provider] - See instructions Activity Restrictions/Add. Instructions Additional Instructions/Restrictions: Call your family doctor to establish care for this visit to the emergency department and schedule follow-up within 48 hours to ensure improvement. If you have any worsening of your condition or any other concerning signs or symptoms, return to the emergency department or your primary care doctor for further evaluation. Clinical Impressions Clinical Impression: Ocular migraine Print Language Print Language: Hungarian Discharge ED Provider: Ayan Knapp General Adult HPI General Chief complaint: Recheck/Abnormal Lab/Rx Stated complaint: BP 180/111 , nubmess in hands,foggy LT eye Time Seen by Provider: 10/19/24 17:19 Mode of Arrival: Ambulatory Source of Information: Patient Limitations: No Limitations Description of Symptoms (Recalled from ER Triage Doc. by RN): pt to ed c/o bilateral upper extremity numbness and tingling associated with loss of vision his left eye that has subsided on arrival to ed. pt states he took his bp at work and it was elevated so he came for eval. pt denies cardiovascular hx. History of Present Illness HPI narrative: Please note that above description of symptoms, in this electronic medical record under categorization of recalled from ER triage doctor by RN are reflective of an initial nursing assessment, however, is not reflective of my full history and physical exam that was personally taken and clarified. Consequentially, this preceding description of symptoms, which may include the patient's categorized chief complaint in the EMR, do not reflect my personal clinical impression, and the ultimate description of history of present illness and patient stated complaints should be deferred to this section of the note. Unless stated otherwise or congruent with this section of the note, additional signs, symptoms, or incongruence should be interpreted as inaccurate with my clinical impression. Related Data Previous Rx's ?Medication ?Instructions ?Recorded doxycycline hyclate 100 mg tablet 100 mg PO BID 10 days #20 tabs 08/12/24 ibuprofen 800 mg tablet 800 mg PO TID PRN pain #30 tabs 08/12/24 methylprednisolone 4 mg tablets in See Rx Instructions .Route 08/12/24 a dose pack (Medrol (Edward)) .COMPLEX 6 days #21 tabs Allergies Allergy/AdvReac Type Severity Reaction Status Date / Time diphenhydramine (From Allergy Unknown Verified 12/05/20 18:28 BENADRYL) [facility] Disclaimer: The information contained in this section may have been updated after the patient was seen, as this information can be updated by other users. Medical History (Updated 10/19/24 @ 18:04 by Ayan Knapp MD) Anxiety Hypertension Surgical History (Updated 08/12/24 @ 11:57 by Radha Stafford RN) History of tonsillectomy Social History Smoking Status: Former smoker tobacco type: cigarettes packs per day: 1 alcohol intake: never substance use type: opiates current occupational status: employed Travel in the last 8 weeks: None Have you lived/traveled outside [place] in past 30 days?: No Contact w/someone who lives/traveled outside [place] past 30 days?: No Exposure to someone with infectious disease in past 14 days?: No Do you have a fever (greater than 100.4 F or 38 C)?: No Have you tested positive for COVID-19: No Exposed to someone with COVID-19 in past 14 days?: No Do you have a sore throat?: No Do you have a cough?: No Do you have any weakness?: No Do you have any diarrhea?: No Are you experiencing any unusual bleeding?: No Do you have any muscle aches/pain?: No Do you have any abdominal pain?: No Are you experiencing loss of taste or smell?: No Other Medical History Have you received the Flu Vaccine for this season: No Have you received the Pneumonia Vaccine: No ROS Obtained: Yes All systems reviewed & no additional complaints except as documented Physical Exam General General appearance: alert Head Head exam: atraumatic and normocephalic Eye Eye exam: Present normal appearance, PERRL and EOMI Neck Neck exam: Present normal inspection, full ROM and trachea midline Respiratory Respiratory exam: Absent respiratory distress, wheezes, stridor, accessory muscle use or prolonged expiratory phase Cardiovascular Cardiovascular exam: Present other (Pulses equal symmetric in upper and lower extremities) Abdominal Exam Abdominal exam: Present soft; Absent distention, tenderness or pulsatile mass Extremities Exam Extremities exam: Absent edema Neurological Exam Neurological exam: Present alert, oriented X3 and CN II-XII intact; Absent motor sensory deficit Skin Skin exam: Present warm and dry; Absent diaphoresis or erythema Medical Decision Making Medical Records Medical records reviewed: Yes I reviewed the patient's medical records. Screening: Per USPSTF and CDC recommendations, given the prevalence of disease in our region, it is our hospital?s policy to screen for HIV and viral Hepatitis for all patients aged 18 and over and those with ongoing risk factors. Armin Inquiry Pt receiving controlled substance: No Armin was queried for this patient: No Vital Signs: 10/19/24 16:07 Temperature 98.2 F Temperature Source Oral Pulse Rate [Left Radial] 63 Respiratory Rate 20 Blood Pressure [Right Arm] 168/98 H Blood Pressure Mean [Right Arm] 121 02 Sat by Pulse Oximetry 98 Oxygen Delivery Method Room Air Medical Decision Narrative: Very well-appearing 39-year-old male presenting with multiple complaints. Patient states that he had transient blurry vision in the lateral aspect of his left eye visual whitlock yesterday. Just for bed. Had periorbital headache took Tylenol Motrin went to bed. Woke up and it was better. 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 States that he intermittently has numbness running down from his left upper extremity into his left thumb and pointer finger as well, unsure if it is related. Denies chest pain, shortness of breath, syncope, or any other complaints. History was obtained via conversation with patient. On arrival, patient hemodynamically stable, alert, oriented x4, appropriate, GCS 15, moving all extremities spontaneously, pupils equal and reactive to light. Full physical exam performed and significant for NIHSS 0. Cardiopulmonary exam normal. Patient visual whitlock are all intact and currently has no complaints. Normotensive and nontachycardic. Differential includes optic migraines, palpitations, dehydration, less likely to be retinal detachment, stroke, arteritis, among others. Patient placed on continuous cardiac monitoring and continuous pulse ox with initial blood pressure 168/98, heart rate 63, saturation 98% on room air. 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 Nontachycardic. Has no acute complaints. Independent interpretation of EKG shows sinus rhythm 61 bpm. No acute ischemic change. Nonspecific T wave inversions. [place] interval 148, QRS 95, QTc 387. Normal axis. On reevaluation, patient still resting comfortably no acute complaints. Hematologic workup was considered, patient not currently having any symptoms, so I feel this is inappropriate this time. EKG normal. CT imaging of the head was also considered, but patient has transient symptoms, not currently there, unilateral and associated with periorbital headache. I feel this is most consistent with optical migraines given Tylenol, Motrin, hydration settled symptoms. Regarding social determinants of health, patient states that he does have follow-up with a primary care provider later this month, I feel this is appropriate. Given patient presentation, workup, history, this most likely represents optical migraines orthostatic presyncope in the setting of significant exertion. Because patient at baseline without signs or symptoms of clinical decompensation, deemed appropriate for discharge. Results were relayed to patient who voiced understanding and were agreeable to outpatient management and follow up. I discussed my clinical impression with patient and answered all questions. At this time, the evidence for any other entities in the differential is insufficient to warrant any further testing or ED observation. This was explained as well. Advisory was given that persistent or worsening symptoms require further evaluation. I confirmed the understanding of this discussion. Manager Hi disclaimer Much of this encounter note is an electronic director of radio services spoken language to printed text. Electronic director of radio services of the spoken language may permit errors. Although I have reviewed the note, some errors may still exist. Critical Care Critical Care Time Critical Care Time: No
[2024-10-19 18:08] VITALS: BP 140/90; PULSE 60; RESP 16; TEMP 36.6; O2SAT 99
== END 2024-10-19 18:10 | disposition home or self-care (01) ==
PROVIDERS: Emergency Provider Emergency Medicine; PCP Nurse Practitioner Family
DX: G43.109 Migraine with aura, not intractable, without status migrainosus (principal); R20.2 Paresthesia of skin; H54.62 Unqualified visual loss, left eye, normal vision right eye; R41.9 Unspecified symptoms and signs involving cognitive functions and awareness; I10 Essential (primary) hypertension; Z87.891 Personal history of nicotine dependence
CPT/HCPCS: 93005; 99283

== ENCOUNTER 2024-11-01 15:47 | Outpatient (CLI) | payer MEDICAID, SELFPAY ==
[2024-11-01 19:50] LABS: Hematocrit 48.9 % (42.0-52.0); Hemoglobin 16.7 g/dL (14.1-18.0); Mean Corpuscular Volume 96.3 fl (80-94); Red Blood Count 5.08 M/mm3 (4.60-6.20); White Blood Count 10.7 K/mm3 (4.8-10.8)
[2024-11-01 19:51] LABS: Basophils # 0.1 K/mm3 (0-0.2); Basophils % 0.6 % (0.1-2.0); Eosinophils # 0.1 K/mm3 (0.0-0.4); Eosinophils % 0.9 % (0.1-12.0); Lymphocytes # 3.7 K/mm3 (0.7-4.5); Lymphocytes % 34.5 % (10-50); Mean Corpuscular HGB Conc 34.2 g/dL (31.8-35.4); Mean Corpuscular Hemoglobin 32.9 pg (27.0-31.2); Mean Platelet Volume 9.4 fl (7.4-10.4); Monocytes # 0.8 K/mm3 (0.1-1.0); Monocytes % 7.4 % (1.7-9.3); Neutrophils % 56.4 % (37.0-80.0); Platelet Count 310 K/mm3 (142-424); Red Cell Distribution Width 13.2 % (11.5-17.5)
[2024-11-01 20:22] LABS: Alanine Aminotransferase 68 U/L (12-78); Albumin Level 5.5 g/dl (3.5-5.0); Albumin/Globulin Ratio 1.8 (1.1-1.8); Alkaline Phosphatase 83 U/L (38-126); Anion Gap 17.4 mEq/L (5-15); Aspartate Amino Transferase 63 U/L (17-59); Bilirubin,Total 0.8 mg/dl (0.2-1.3); Blood Urea Nitrogen 10 mg/dl (9-20); Calcium 10.3 mg/dl (8.4-10.2); Carbon Dioxide 23 mmol/L (22.0-30.0); Chloride 107 mmol/L (98-107); Cholesterol 241 mg/dl (140-200); Estimated Glomerular Filt Rate 107 ml/min (>60); GFR (African American) 129 ML/MIN (>60); Globulin 3.1 g/dL (1.3-3.2); Glucose 89 mg/dl (74-100); Potassium 4.4 mmoL/L (3.5-5.1); Sodium 143 mmol/L (136-145); Total Protein,Serum 8.6 g/dl (6.3-8.2); Triglycerides 69 mg/dl (30-150); VLDL Cholesterol 14 mg/dL (0-40)
[2024-11-01 20:31] LABS: Chol/HDL Ratio 2.6 (1-3.5); HDL Cholesterol 93 mg/dl (40-60)
[2024-11-01 20:33] LABS: Direct LDL Cholesterol 101.89 mg/dL (100-129)
[2024-11-01 20:42] LABS: 25-OH Vitamin D, Total 29.2 ng/mL (30-100)
[2024-11-01 20:54] LABS: Thyroid Stimulating Hormone 2.56 uIU/mL (0.465-4.68)
[2024-11-01 22:08] LABS: HIV Combo NEGATIVE (Negative)
[2024-11-01 22:13] LABS: Hepatitis C Ab Qual. W/ RFX REACTIVE (Negative)
[2024-11-03 23:16] LABS: HCV RNA (International Units) 11600000 IU/mL (.)
== END 2024-11-01 23:59 | disposition home or self-care (01) ==
LOC: LAB.DROPOF 11-02 15:48
PROVIDERS: PCP Nurse Practitioner Family; Visit Provider Nurse Practitioner Family
DX: I10 Essential (primary) hypertension (principal); Z11.59 Encounter for screening for other viral diseases; Z11.4 Encounter for screening for human immunodeficiency virus [HIV]
CPT/HCPCS: 80053; 80061; 82306; 84443; 85025; 86803; 87389; 87522

== ENCOUNTER 2024-11-13 08:26 | Outpatient (CLI) | payer MEDICAID, SELFPAY ==
--- NOTE | 2024-11-13 08:28 | CA_ITS ---
APPROVED REPORT EXAM: Comprehensive 2D, Doppler, and color-flow Echocardiogram Cytology Laboratory Manager: Venessa Wynn RVT Ht: 5 ft 10 in Wt: 155lbs BSA: 1.87 BP: 172/104 mmHg Indications: SOA,CP,HTN,EX SMOKER 2D Dimensions IVSd 1.05 cm M: 0.6-1.2 LVEF (Visual) 72.50 % PWd 1.03 cm M: 0.6 - 1.2 LA Volume 12.60 mL LVDd 3.97 cm M: 4.2 - 5.9 LA Volume Index 6.74 mL/m2 (M/F) 16-34 LVDs 2.34 cm M: 2.5 - 4.0 M-Mode Dimensions LA Diam 2.83 cm (1.9-4.0) TAPSE 2.51 (<1.7) LV Diastology E Decel Time 260 (160-240 msec) E/A Ratio 1.1 Aortic Valve JEREMY Index 1.98 cm2/m2 AoV Peak [place]. 139.0 (50-130 cm/s) AO Peak GR. 7.80 mmHg AO Mean GR. 5.20 (<5 mmHg) AO VTI 26.9 (18-25 cm) JEREMY (VTI) 3.80 (2.5-4.5 cm2) Mitral Valve MV E Max [place]. 85.0 (40-130 cm/s) MV A Velocity 79.0 (40-130 cm/s) E/A Ratio 1.07 MV PHT 76.0 ms Pulmonary Valve PV Peak Velocity 115.0 (50-150 cm/s) Left Ventricle The left ventricle is normal size. The left ventricular systolic function is normal. The left ventricular ejection fraction is within the normal range. There is normal left ventricular wall thickness. There is normal LV segmental wall motion. The left ventricular diastolic function is normal. LVEF is 55%. Right Ventricle The right ventricle is normal size. The right ventricular systolic function is normal. Atria The left atrium size is normal. The right atrium size is normal. There is no Doppler evidence of interatrial shunt. Aortic Valve Aortic valve opens well. There is no aortic valvular stenosis. Trace aortic regurgitation. Mitral Valve The mitral valve is normal in structure. No evidence of mitral valve stenosis. Trace mitral regurgitation. Tricuspid Valve Tricuspid valve is grossly normal in structure and function. Trace tricuspid regurgitation. There is insufficient TR jet to estimate RVSP. Pulmonic Valve The pulmonary valve is normal in structure. Trace pulmonic regurgitation. Great Vessels The aortic root is normal in size. IVC is normal in size and collapses >50% with inspiration. Pericardium There is no pericardial effusion. Other Information Study Quality: Fair Conclusion Normal biventricular systolic function. No significant valvular stenosis or regurgitation. Electronically signed by : Marcie Estrada MD 11/14/2024 22:56:01
--- NOTE | 2024-11-13 08:56 | MR_ITS ---
FINAL REPORT CLINICAL HISTORY: TIA, weakness tingling / pain on posterior of head 14 ml prohance COMPARISON: None FINDINGS: Multiplanar MR imaging of the brain was performed without and with contrast. There is no evidence of intracranial hemorrhage or mass. No abnormal extra-axial fluid collection is seen. The ventricular size is within normal limits. There is no evidence of shift of the midline structures. The posterior fossa and brainstem have an unremarkable appearance. No area of abnormal restricted diffusion is identified. No abnormal contrast enhancement is seen. Normal major vessel vascular flow voids are noted. There is mild lobular mucoperiosteal thickening of the right maxillary sinus. IMPRESSION: No acute intracranial abnormality identified. Reviewed, Interpreted and Dictated by Joel Silverio MD Transcribed by Melissa Ramirez Authenticated and . [facility]
[2024-11-13] MEDS: SODIUM CHLORIDE 0.9% 10ML SYR (RAD ONLY) 10 ML IV (10:28)
[2024-11-13] MEDS: GADOTERIDOL INJ 20ML SYRINGE 14 ML IV (10:28)
== END 2024-11-13 23:59 | disposition home or self-care (01) ==
LOC: RT 08:26
PROVIDERS: PCP Nurse Practitioner Family; Visit Provider Nurse Practitioner Family
DX: R53.1 Weakness (principal); Z86.73 Personal history of transient ischemic attack (TIA), and cerebral infarction without residual deficits; R06.02 Shortness of breath; R07.9 Chest pain, unspecified; I10 Essential (primary) hypertension; Z87.891 Personal history of nicotine dependence
CPT/HCPCS: 70553; 93306; A9576

== ENCOUNTER 2024-11-15 11:07 | Outpatient (CLI) | payer MEDICAID, SELFPAY ==
[2024-11-15 11:39] LABS: D-Dimer 0.37 ug/mL (0.0-0.5)
[2024-11-15 11:51] LABS: Troponin I < 0.01 ng/ml (0.00-0.034)
== END 2024-11-15 23:59 | disposition home or self-care (01) ==
LOC: LAB 11:08
PROVIDERS: PCP Nurse Practitioner Family; Visit Provider Physician Assistant
DX: I10 Essential (primary) hypertension (principal); R94.31 Abnormal electrocardiogram [ECG] [EKG]; R00.0 Tachycardia, unspecified; R07.89 Other chest pain; R06.02 Shortness of breath; F17.210 Nicotine dependence, cigarettes, uncomplicated
CPT/HCPCS: 36415; 84484; 85378

== ENCOUNTER 2024-11-29 10:30 | Outpatient (CLI) | payer MEDICAID, SELFPAY ==
[2024-11-29 18:43] LABS: Hep A Ab, IgM ND
[2024-12-01 05:08] LABS: Hep A Ab, Total Negative (Negative); Hep B Core Ab, Total Negative (Negative); Hep B Surface Ab, Qual Non Reactive (.)
== END 2024-11-29 23:59 | disposition home or self-care (01) ==
LOC: LAB.DROPOF 11-30 12:38
PROVIDERS: PCP Nurse Practitioner Family; Visit Provider Nurse Practitioner Family
DX: Z11.59 Encounter for screening for other viral diseases (principal)
CPT/HCPCS: 86704; 86706; 86708